=== PATIENT | female | born 1945 | race Caucasian/White ===

== ENCOUNTER 2018-06-22 13:14 | Outpatient (CLI) | payer MEDICARE ==
[2018-06-22 13:47] LABS: Hemoglobin 13.5 g/dL (12.0-16.0); Mean Corpuscular HGB CONC 33.8 g/dL (32.0-36.0); Mean Corpuscular Volume 85.9 fL (78.0-98.0); Mean Platelet Volume 9.3 fL (7.4-10.4); Platelet Count 153 thou/uL (130-400); RBC Distribution Width 12.3 % (11.5-14.5); Red Blood Cell (RBC) Count 4.64 mill/uL (4.20-5.40)
[2018-06-22 14:00] LABS: ALT (SGPT) 12 U/L (8-55); AST (SGOT) 11 U/L (5-34); Alkaline Phosphatase 74 U/L (40-150); Anion Gap 15 mmol/L (10-20); BUN (Urea Nitrogen) 13 mg/dL (9.8-20.1); Bilirubin, Total 0.4 mg/dL (0.2-1.2); Calc. Creatinine Clearance 0 mL/min (70-130); Calcium 9.3 mg/dL (7.8-10.44); Carbon Dioxide 24 mmol/L (23-31); Chloride 107 mmol/L (98-107); Estimated GFR-MDRD 74; Globulin 2.7 g/dL (2.4-3.5); Glucose 92 mg/dL (83-110); Potassium 4.2 mmol/L (3.5-5.1); Protein, Total 6.7 g/dL (6.0-8.3); Sodium 142 mmol/L (136-145)
== END 2018-06-22 13:15 | disposition home or self-care (01) ==
LOC: MADLAB 13:14
PROVIDERS: ATTEND Surgery
DX: Z08 Encounter for follow-up examination after completed treatment for malignant neoplasm (principal); Z85.038 Personal history of other malignant neoplasm of large intestine
CPT/HCPCS: 36415; 80053; 85027

== ENCOUNTER 2024-09-04 10:12 | Outpatient (CLI) | payer MEDICARE ==
[2024-09-04 11:27] LABS: Uric Acid 4.4 mg/dL (2.6-6.0)
[2024-09-05 12:41] LABS: Reference Lab Name LABCORP
[2024-09-07 11:15] LABS: ANA Symphony (Qualitative) Negative (Negative); ANA Symphony (Quantitative) 0.2 Ratio (< 0.7 Negative); CCP IgG Antibody 1.8 EliAU/mL (<7 Negative); EliA RAS New Method **** NEW METHOD ****; Jo-1 IgG Antibody Less than 0.3 EliAU/mL (<7 Negative); Rheumatoid Factor IgM Antibody 1.9 IU/mL (<3.5 Negative); SSA/Ro IgG Antibody 0.7 EliAU/mL (<7 Negative); SSB/La IgG Antibody 0.5 EliAU/mL (<7 Negative)
== END 2024-09-04 10:13 | disposition home or self-care (01) ==
LOC: MADLAB 10:12
PROVIDERS: ATTEND Internal Medicine Rheumatology
DX: C34.90 Malignant neoplasm of unspecified part of unspecified bronchus or lung (principal); C79.51 Secondary malignant neoplasm of bone; M06.9 Rheumatoid arthritis, unspecified; M15.9 Polyosteoarthritis, unspecified
CPT/HCPCS: 36415; 82550; 83520; 84550; 86038; 86140; 86200; 86225; 86235